=== PATIENT | female | born 1955 | race Caucasian/White ===

== ENCOUNTER 2018-10-07 06:39 | Day surgery (SDC) | payer BC ==
[2018-10-07] MEDS ORDERED: ACETAZOLAMIDE 250 MG PO ONE (06:51)
[2018-10-07] MEDS: TETRACAINE HCL 0.5 % 1 DROP SOL ONE ×3 (07:01→08:30)
[2018-10-07] MEDS: CYCLOPENTOLATE 1% SOL ONE ×2 (07:02→07:13)
[2018-10-07] MEDS: KETOROLAC 0.5% OPTH 60 DROP SOL ONE ×2 (07:02→07:13)
[2018-10-07] MEDS: PHENYLEPHRINE HCL 10% OPHTHAL SOL ONE ×2 (07:02→07:13)
[2018-10-07 07:05] VITALS: TEMP 97.8; O2SAT 99
[2018-10-07] MEDS ORDERED: SODIUM CHLORIDE 0.9% FLUSH 10 ML SOL IV ONE (07:20)
[2018-10-07] MEDS ORDERED: MIDAZOLAM 2 MG/2 ML SOL ONE (08:15)
[2018-10-07] MEDS ORDERED: FENTANYL 100MCG/2ML SOL ONE (08:15)
[2018-10-07] MEDS ORDERED: POVIDONE IODINE 5% SOL ONE (08:27)
[2018-10-07] MEDS ORDERED: LIDOCAINE HCL 1% MPF 30 SOL ONE (08:27)
[2018-10-07] MEDS ORDERED: BSS 500 ML 500 ML IR ONE (08:27)
[2018-10-07] MEDS: IMPRIMIS ONE ×2 (08:40→08:48)
[2018-10-07 09:00] VITALS: BP 136/79; PULSE 76; RESP 20
== END 2018-10-07 09:16 | disposition home or self-care (01) ==
LOC: SURG 06:39
PROVIDERS: ATTEND Ophthalmology
DX: H25.89 Other age-related cataract (principal)
CPT/HCPCS: J2250; J3010; A9270-GY; J2001

== ENCOUNTER 2018-11-04 06:15 | Day surgery (SDC) | payer BC ==
[~2018-11-04 06:15] MED LIST: ACETAZOLAMIDE 250 MG PO ONE
[2018-11-04] MEDS: TETRACAINE HCL 0.5 % 1 DROP SOL ONE ×3 (06:43→08:04)
[2018-11-04] MEDS: PHENYLEPHRINE HCL 10% OPHTHAL SOL ONE ×2 (06:43→06:55)
[2018-11-04] MEDS: CYCLOPENTOLATE 1% SOL ONE ×2 (06:44→06:56)
[2018-11-04] MEDS: KETOROLAC 0.5% OPTH 60 DROP SOL ONE ×2 (06:45→06:56)
[2018-11-04] MEDS ORDERED: FENTANYL 100MCG/2ML SOL ONE (07:39)
[2018-11-04] MEDS ORDERED: MIDAZOLAM 2 MG/2 ML SOL ONE (07:40)
[2018-11-04] MEDS ORDERED: LIDOCAINE HCL 1% MPF 30 SOL ONE (08:00)
[2018-11-04] MEDS ORDERED: IMPRIMIS ONE (08:00)
[2018-11-04] MEDS ORDERED: POVIDONE IODINE 5% SOL ONE ×2 (08:00→08:03)
[2018-11-04] MEDS ORDERED: BSS 500 ML 500 ML IR ONE (08:01)
[2018-11-04 08:32] VITALS: BP 170/70; PULSE 60; RESP 18; TEMP 96.9; O2SAT 99
== END 2018-11-04 08:41 | disposition home or self-care (01) ==
LOC: SURG 06:15
PROVIDERS: ATTEND Ophthalmology
DX: H25.89 Other age-related cataract (principal)
CPT/HCPCS: J2250; J3010; A9270-GY; J2001